=== PATIENT | male | born 1960 | race Caucasian/White ===

== ENCOUNTER 2019-08-06 15:16 | Outpatient (CLI) | payer OTHER, SELFPAY ==
--- NOTE | ~2019-08-06 | XR_ITS ---
XR hip RT min 2V DATE: 08/06/2019 15:41 INDICATION: Right hip pain TECHNIQUE: AP and lateral views of right hip COMPARISON: 09/19/2017 right hip FINDINGS: Again noted is mild right femoral head spurring and some right hip joint space narrowing co nsistent with mild/moderate right hip osteoarthritis. No fracture, dislocation, avascular necrosis or bone destruction is detected. The pubic symphysis and right sacroiliac joint appear normal. IMPRESSION: Mild to moderate right hip osteoarthritis Reviewed, dictated and finalized at location B.
== END 2019-08-06 15:17 | disposition home or self-care (01) ==
DX: M25.551 Pain in right hip (principal)
CPT/HCPCS: 73502

== ENCOUNTER 2023-09-25 09:40 | Outpatient (RCR) | payer MEDICARE, SELFPAY ==
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
--- NOTE | 2023-09-25 11:34 | OPREHPOC ---
Outpatient Therapy Plan of Care This is a Multidisciplinary Plan of Care that may contain components documented by all disciplines (PT, OT, and ST.) PT Problem 1 PT Problem #1 Knowledge Deficit PT Goal 1 Goal Pt. will be independent with a HEP addressing l.e. strength and mobility. Target Visit 2 PT Problem 2 PT Problem #2 Impaired Flexibility PT Goal 1 Goal -Pt. will demonstrate no restriction in hip rotation no the right due to tightness -Pt. will present at 15 degrees from full knee extension with the 90/90 test. Target Visit 10 PT Problem 3 PT Problem #3 Impaired Functional Mobil PT Goal 1 Goal Pt. will demonstrate less than 50% limitation on both the NDI and LEFS PT Problem 4 PT Problem #4 Impaired Strength PT Goal 1 Goal Pt. will complete right SLR for 10 reps with 1/10
--- NOTE | 2023-10-06 17:58 | PCPTNOTE ---
no call/no show
--- NOTE | 2023-11-08 11:46 | PCPTNOTE ---
Mr. Hutson attended a total of 2 treatment sessions. At this time he has failed to contact the clinic regarding scheduling and will be discharged from our care. Refer to 09/27/23 daily note for patient discharge status. Connor Guthrie, MPT
== END 2023-09-27 20:00 | disposition home or self-care (01) ==
LOC: CHSPT 09:40
PROVIDERS: Visit Provider Family Medicine
DX: M54.2 Cervicalgia (principal); M25.551 Pain in right hip; M54.16 Radiculopathy, lumbar region; T14.8XXD Other injury of unspecified body region, subsequent encounter
CPT/HCPCS: 97110; 97140; 97161

== ENCOUNTER 2024-09-03 11:21 | Outpatient (CLI) | payer MEDICARE, SELFPAY ==
[2024-09-03 12:29] LABS: Basophils Percent Auto 0.7 % (0.2-1.2); Eosinophils Absolute Auto 0.1 K/mm3 (0-0.3); Eosinophils Percent Auto 1.2 % (0-4.4); Hematocrit 46.9 % (42.0-52.0); Hemoglobin 15.2 g/dL (14.0-18.0); Immature Granulocyte Absolute 0.01 K/mm3 (0.00-0.031); Immature Granulocyte Percent A 0.2 % (0-0.5); Lymphocytes Absolute Auto 0.96 K/mm3 (0.9-3.2); Lymphocytes Percent Auto 23.1 % (18.3-44.2); Mean Corpuscular HGB Conc 32.4 g/dl (32-36); Mean Corpuscular Hemoglobin 29.7 pg (26-34); Mean Corpuscular Volume 91.8 fl (80-100); Mean Platelet Volume 9.6 fl (7.4-10.4); Monocytes Absolute Auto 0.5 K/mm3 (0.1-0.6); Monocytes Percent Auto 10.8 % (2.6-8.5); Neutrophils Absolute Auto 2.7 K/mm3 (1.3-6.7); Platelet Count Result 182 k/mm3 (150-375); Red Blood Count 5.11 M/mm3 (4.6-6.20); Red Cell Distribution Width 13.2 % (11.5-14.5); White Blood Count 4.2 K/mm3 (4.5-10.0)
--- OUTSIDE RECORDS SUMMARY | 2024-09-03 12:41 | XMS_ITS | Clinical Summary ---
Author Organization [facility] Address [address] [facility] Attn: Epic Prelude ADT KARLA WRAY [address] Care Team Providers Care Narcotics Agent Name Role Phone Other, Sgf Primary Care Provider Unavailabl e Allergies No known active allergies Active Problems Problem Noted Date Diagnosed Date C1 cervical fracture 06/02/2013 Scalp laceration 06/02/2013 Closed fibular fracture 06/02/2013 Traumatic hemoperitoneum 06/02/2013 Mesenteric bleeding secondar y to trauma from the cecum and ileum 06/02/2013 Social History Tobacco Use Types Packs/Day Years Used Date Smoking Tobacco: Never Assessed Sex and Gender Information Value Date Recorded Sex Assigned at Not on file 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 Gender Identity Not on file Sexual Orientation Not on file Plan of Treatment Health Maintenance Due Date Last Done Comments DTAP/TDAP/TD VACCINES (1 - Tdap) 09/16/1978 COLORECTAL SCREENING 09/16/2004 Colorectal Cancer Screening 09/16/2004 FIT-DNA Q 3 years 09/16/2004 FIT/FOBT Q 1 year 09/16/2004 Flex Sig/CT Colonography Q 5 years 09/16/2004 ZOSTER VACCINE (1 of 2) 09/16/2009 INFLUENZA VACCINE (#1) 2023 RSV VACCINE (60+ or ) (1 - 1-dose 75+ series) 09/16/2034 PNEUMOCOCCAL VACCINE 0-49 YEARS Aged Out No longer eligible based on patient's age to complete this topic Medical Devices Implanted Type Area Food Service Steward Device Identifier Shelf Expiration Date Model / Serial / Lot Barrier Seprafilm 5x6in [id number] - [id number] Implanted:Qty : 2 on 06/02/2013 Adhesion Barrier Abdomen GENZYME- BIOSURG 01/19/2015 [id number] Care Teams Narcotics Agent Relationship Specialty Start Date End Date Other, Sgf NO ADDRESS ON FILE PCP - General 06/02/13
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
--- OUTSIDE RECORDS SUMMARY | 2024-09-03 12:41 | XMS_ITS | Clinical Summary ---
Author Organization [facility] Address [facility] [place] [address] Care Team Providers Care Caustic Strength Inspector Name Role Phone Unavailable Primary Care Provider Unavailabl e Social History Tobacco Use Types Packs/Day Years Used Date Smoking Tobacco: Never Assessed Sex and Gender Information Value Date Recorded Sex Assigned at Not on file Legal Sex Male 4:37 PM CDT Gender Identity Not on file Sexual Orientation Not on file Plan of Treatment Health Maintenance Due Date Last Done Comments Colorectal Cancer Screening Colonoscopy (10 Years) 1959 Annual Physical 09/16/1962 Hepatitis C 09/16/1977 DTaP, Tdap and Td Vaccines ( 1 - Tdap) 09/16/1978 Zoster Vaccines (1 of 2) 09/16/2009 COVID-19 Vaccine ( - 2023-2 5 season) 2024 RSV Immunization or 60+ Years (1 - 1-dose 75+ series) 09/16/2034 Meningococcal B Vaccine Aged Out No l onger eligible based on patient's age to complete this topic Meningococcal Vaccine Aged Out No yazan alicia eligible based on patient's age to complete this topic Pneumococcal Vaccine: Pediat rics (0 to 5 Years) and At-Risk Patients (6 to 49 Years) Aged Out No longer eligible b ased on patient's age to complete this topic RSV Immunizations Under 20 Months Aged Out No longer eligible based on patient's age to complete this topic
[2024-09-03 12:42] LABS: Hemoglobin A1C 5.5 % (<5.7)
[2024-09-03 12:44] LABS: Alanine Aminotransferase 25 U/L (6-50); Albumin Level 4.4 g/dL (3.5-5.1); Alkaline Phosphatase 66 U/L (38-126); Anion Gap 9 mmol/L (4-12); Aspartate Amino Transferase 30 U/L (17-59); Bilirubin,Total 0.5 mg/dL (0.2-1.3); Blood Urea Nitrogen 19 mg/dL (9-20); Carbon Dioxide 26 mmol/L (22-30); Chloride 106 mmol/L (98-107); Cholesterol 173 mg/dL (0-200); Creatine Kinase 285 U/L (55-170); Estimated Glomerular Filt Rate > 60; Glucose 101 mg/dL (65-110); HDL Direct 55 mg/dL; Potassium 4.3 mmol/L (3.4-5.0); Sodium 141 mmol/L (137-145); Triglycerides 69 mg/dL (<150)
[2024-09-03 12:55] LABS: LDL Cholesterol Direct 90 mg/dL
[2024-09-03 13:13] LABS: Prostate Specific Antigen 2.6 ng/mL (< OR = 4.0)
[2024-09-05 02:19] LABS: CRP, High Sensitivity 0.6 mg/L
== END 2024-09-03 11:22 | disposition home or self-care (01) ==
PROVIDERS: PCP Family Medicine; Visit Provider Family Medicine
DX: E78.49 Other hyperlipidemia (principal); R73.03 Prediabetes; Z12.5 Encounter for screening for malignant neoplasm of prostate
CPT/HCPCS: 36415; 80053; 80061; 82550; 83036; 84153; 85025; 86141; G0103